=== PATIENT | female | born 1995 | race Caucasian/White ===

== ENCOUNTER 2021-05-19 14:47 | Observation (INO) | payer BC, SELFPAY ==
[2021-05-19 15:11] VITALS: BP 115/70; PULSE 87
[2021-05-19 15:15] VITALS: BP 113/68; PULSE 90
[2021-05-19 15:30] VITALS: BP 116/66; PULSE 86
[2021-05-19 15:31] VITALS: BMI 34.4
--- NOTE | 2021-05-19 15:31 | OBADM ---
This patient, Ana Mayfield, admitted to the OB room [facility] for observation. Patient/family oriented to hospital policies and general routines including ID bracelet, bed and alarms, visiting hours, pain management, procedures, bathroom and other care routines, personal items, smoking policy, room service/diet, and visiting hours. Patient/Family are encouraged to report perceived risks to care and to ask questions if they do not understand what they are told or what they should do. Pt. reports that she is having constant mid to upper back pain and RUQ pain. She states she has vomited X1 today. She is not from this area and has received PNC elsewhere.
[2021-05-19 15:36] LABS: Add Urine Microscopic? YES; Amorphous Sediment Urine Few; Appearance Urine Clear (Clear); Bacteria Urine Trace /hpf; Bilirubin Urine Negative (Negative); Blood Urine Negative (Negative); Color Urine Yellow (Yellow); Glucose Urine UA Negative (Negative); Ketones Urine Negative (Negative); Leukocyte Esterase Ur Negative LEU/UL (Negative); Mucus Urine Rare /lpf; Nitrate Urine Negative (Negative); Protein Urine 1+ mg/dL (Negative); Specific Grav Ur 1.021 (1.001-1.035); Squamous Epithelial Cell Urine Occasional /hpf (Few); WBC Urine 0-3 /hpf
--- NOTE | 2021-05-19 15:41 | SUR.OPER ---
1540--Report to Dr. Cruz re: pt's c/o back and RUQ pain, v.s., urine results and vomiting X1 today, no ctxns, and fhr tracing. Also reported the pt. states she had reacted to her dog and picked it up in a roberts to keep it from attacking the other dog. Orders received to give Tylenol and DC home with instructions to go to ED if she develops fever, increased pain or vomiting.
[2021-05-19 15:45] VITALS: BP 118/67; PULSE 91
[2021-05-19] MEDS: ACETAMINOPHEN 500 MG TABLET 1000 MG PO (16:07)
--- NOTE | 2021-05-27 12:17 | P.PNOB_ITS ---
OB - Triage/Final Diagnosis Visit Information Comments/Additional reasons for admission: I have assessed the risk for this patient, Ana Mayfield, and determined that she would benefit from observation care. Evaluation Laboratory results: Laboratory Tests 05/19/21 15:20 Urine Color Yellow Urine Appearance Clear Urine pH 6.0 Ur Specific [place] 1.021 Urine Protein 1+ H Urine Glucose (UA) Negative Urine Ketones Negative Ur Blood (Man) Negative Urine Nitrate Negative Urine Bilirubin Negative Urine Urobilinogen 2.0 H Leukocyte Esterase Rfl Negative Urine RBC 3-5 H Urine WBC 0-3 Ur Squamous Epith Cells Occasional Amorphous Sediment Few H Urine Bacteria Trace Urine Mucus Rare Final Diagnosis (1) Back pain affecting : Code(s): O99.891 - Other specified diseases and conditions complicating ; M54.9 - Dorsalgia, unspecified Status: Acute
== END 2021-05-19 16:15 | disposition home or self-care (01) ==
PROVIDERS: Admitting Provider Obstetrics & Gynecology; PCP Family Medicine; Visit Provider Obstetrics & Gynecology
DX: O99.891 Other specified diseases and conditions complicating pregnancy (principal); M54.9 Dorsalgia, unspecified; Z3A.29 29 weeks gestation of pregnancy
CPT/HCPCS: 81001; A9270; G0378; G0379